=== PATIENT | female | born 1960 | race Caucasian/White ===

== ENCOUNTER → 2017-03-22 | Outpatient (CLI) | payer OTHER | LOC: RAD 15:53 | DX: R05 Cough (principal) | CPT/HCPCS: 71020 ==

== ENCOUNTER → 2020-09-08 | Outpatient (CLI) | payer OTHER ==
[2020-09-08 10:38] LABS: HEMOGLOBIN 13.7 gm/dl (12.3-15.3); RED BLOOD COUNT 4.35 M/UL (4.00-5.10); WHITE BLOOD COUNT 5.9 K/UL (4.5-11.0)
[2020-09-08 10:57] LABS: BUN/CREATININE RATIO 18 (0-10)
[2020-09-09 11:15] LABS: RHEUMATOID ARTHRITIS FACTOR <10.0 IU/mL (0.0-13.9)
[2020-09-11 00:07] LABS: CCP ANTIBODIES IGG/IGA 5 units (0-19)
== END ==
LOC: LAB 09:46
PROVIDERS: Nurse Practitioner Family
DX: M25.561 Pain in right knee (principal); D89.9 Disorder involving the immune mechanism, unspecified; R76.8 Other specified abnormal immunological findings in serum; M25.50 Pain in unspecified joint; M17.11 Unilateral primary osteoarthritis, right knee
CPT/HCPCS: 36415; 73562; 80053; 81001; 82570; 82728; 83520; 84156; 85025; 85652; 86200; 86431

== ENCOUNTER → 2021-03-05 | Outpatient (CLI) | payer OTHER | LOC: KOH-I 10:13 | DX: Z12.2 Encounter for screening for malignant neoplasm of respiratory organs (principal); F17.210 Nicotine dependence, cigarettes, uncomplicated | CPT/HCPCS: 71271 ==